=== PATIENT | male | born 2000 | race Two or more races ===

== ENCOUNTER 2019-11-23 21:06 | Emergency (ER) | payer OTHER ==
[~2019-11-23] VITALS: Ht 185.4 cm; Wt 115.7 kg
--- NOTE | 2019-11-23 21:33 | NUR ---
Patient presents to ER with c/o of numbness ot his jaw, lips and tounge that started 30 minutes ago after eating. Patient states he was eating something spicy. Patient in no acute distress. No weakness noted, patient able to move all extremeties, no facial asymmetry, and no slurring of words. Awaiting MD walker.
[2019-11-23] MEDS ORDERED: diphenhydrAMINE 50 MG/1 ML VIAL ONE (21:43)
[2019-11-23] MEDS ORDERED: diphenhydrAMINE 50 MG/1 ML VIAL IM ONE (21:45)
--- NOTE | 2019-11-23 22:36 | NUR ---
Patient verbalized feeling better after medication give. Patient discharged in stable condition in care of mother. No acute distress. Left ER in stable condition.
[2019-11-23 22:38] VITALS: BP 126/80
== END 2019-11-23 22:36 | disposition home or self-care (01) ==
LOC: ER 21:08
DX: T78.3XXA Angioneurotic edema, initial encounter (principal)
CPT/HCPCS: 96372; 99283; J1200; A4663